=== PATIENT | female | born 1955 | race Caucasian/White ===

== ENCOUNTER 2024-04-17 08:13 | Emergency (ER) | payer MEDICARE ==
[2024-04-17] MEDS ORDERED: Sodium Chloride 0.9% 10 ML Syringe FLUSH PRN (08:49)
[2024-04-17 09:31] LABS: BASOPHILS PERCENT AUTO 0.1 % (0.0-1.0); EOSINOPHILS ABSOLUTE AUTO 0.1 K/mm3 (0.0-0.4); EOSINOPHILS PERCENT AUTO 1.6 % (0.0-6.0); HEMATOCRIT 48.4 % (37.0-47.0); HEMOGLOBIN 16.2 gm/dl (12.0-16.0); IMMATURE GRAN ABSOLUTE AUTO 0.02 K/mm3 (0.00-0.05); IMMATURE GRAN PERCENT AUTO 0.3 % (0.0-0.4); LYMPHOCYTES ABSOLUTE AUTO 1.4 K/mm3 (1.0-4.8); LYMPHOCYTES PERCENT AUTO 20.1 % (24.0-44.0); MEAN CORPUSCULAR HEMOGLOBIN 28.1 pg (28.0-32.0); MEAN CORPUSCULAR HGB CONC 33.5 g/dl (32.0-36.0); MEAN CORPUSCULAR VOLUME 83.9 fl (83.0-99.0); MEAN PLATELET VOLUME 9.8 fl (9.4-12.3); MONOCYTES ABSOLUTE AUTO 0.4 K/mm3 (0.0-0.8); MONOCYTES PERCENT AUTO 5.3 % (0.0-8.0); NEUTROPHILS ABSOLUTE AUTO 4.9 K/mm3 (1.8-7.7); NEUTROPHILS PERCENT AUTO 72.6 % (41.0-71.0); PLATELET COUNT,PLT 251 K/mm3 (150-400); RED BLOOD CELL COUNT 5.77 M/mm3 (4.10-5.30); WHITE BLOOD CELL COUNT,WBC 6.77 K/mm3 (3.9-11.3)
[2024-04-17 09:53] LABS: A/G RATIO 1.2 (1-2); ALBUMIN 4.3 g/dl (3.4-5.0); BILIRUBIN TOTAL 0.8 mg/dL (0.2-1.0); CALCIUM 9.4 mg/dL (8.5-10.1); EST CRCL DRUG DOSING (CG) 53.09 mL/min
[2024-04-17 10:40] LABS: APPEARANCE,URINE CLEAR (Clear); BILIRUBIN,URINE NEGATIVE (Negative); COLOR,URINE LIGHT YELLOW (Yellow); GLUCOSE,URINE NEGATIVE (Negative); KETONES,URINE NEGATIVE (Negative); LEUKOCYTE ESTERASE,URINE TRACE (Negative); NITRITE,URINE NEGATIVE (Negative); OCCULT BLOOD,URINE NEGATIVE (Negative); PH,URINE 6.5 (5.0-8.0); PROTEIN,URINE NEGATIVE (Negative); UROBILINOGEN,URINE 0.2 (0.2-1.0)
[2024-04-17 11:15] LABS: BACTERIA,URINE FEW /hpf (FEW); EPITHELIAL CELLS,URINE 0-5 /hpf (0-5); RBC,URINE 0-5 /hpf (0-5)
[2024-04-17 11:16] LABS: MUCUS,URINE FEW /hpf (FEW)
== END 2024-04-17 12:25 | disposition home or self-care (01) ==
LOC: JD.ED 08:13
DX: G93.9 Disorder of brain, unspecified (principal); R82.90 Unspecified abnormal findings in urine; Z79.890 Hormone replacement therapy
CPT/HCPCS: 36415; 70450; 70450-26; 80053; 81001; 85025; 87086; 93005; 93010; 99285

== ENCOUNTER 2024-06-07 13:29 | Emergency (ER) | payer MEDICARE ==
[2024-06-07] MEDS ORDERED: Sodium Chloride 0.9% 10 ML Syringe FLUSH PRN (14:04)
[2024-06-07] MEDS ORDERED: Naloxone 0.4 MG/ML SDV IVPUSH PRN (15:00)
[2024-06-07 15:04] LABS: BASOPHILS PERCENT AUTO 0.1 % (0.0-1.0); EOSINOPHILS ABSOLUTE AUTO 0.2 K/mm3 (0.0-0.4); EOSINOPHILS PERCENT AUTO 1.7 % (0.0-6.0); HEMATOCRIT 40.6 % (37.0-47.0); HEMOGLOBIN 13.7 gm/dl (12.0-16.0); IMMATURE GRAN ABSOLUTE AUTO 0.02 K/mm3 (0.00-0.05); IMMATURE GRAN PERCENT AUTO 0.2 % (0.0-0.4); LYMPHOCYTES ABSOLUTE AUTO 1.3 K/mm3 (1.0-4.8); MEAN CORPUSCULAR HEMOGLOBIN 28.9 pg (28.0-32.0); MEAN CORPUSCULAR HGB CONC 33.7 g/dl (32.0-36.0); MEAN CORPUSCULAR VOLUME 85.7 fl (83.0-99.0); MONOCYTES ABSOLUTE AUTO 0.6 K/mm3 (0.0-0.8); MONOCYTES PERCENT AUTO 7.1 % (0.0-8.0); NEUTROPHILS ABSOLUTE AUTO 6.6 K/mm3 (1.8-7.7); NEUTROPHILS PERCENT AUTO 75.9 % (41.0-71.0); PLATELET COUNT,PLT 252 K/mm3 (150-400); RED BLOOD CELL COUNT 4.74 M/mm3 (4.10-5.30); WHITE BLOOD CELL COUNT,WBC 8.68 K/mm3 (3.9-11.3)
[2024-06-07] MEDS: Metoclopramide 10 MG/2 ML SDV IVPUSH ONE (15:11)
[2024-06-07] MEDS: diphenhydrAMINE 50 MG/ML SDV IVPUSH ONE (15:11)
[2024-06-07] MEDS: HYDROmorphone 0.5 MG/0.5 ML Syringe IVPUSH ONE (15:15)
[2024-06-07 15:25] LABS: A/G RATIO 1.2 (1-2); ALBUMIN 3.9 g/dl (3.4-5.0); ANION GAP 13.8 (5-15); BILIRUBIN TOTAL 0.7 mg/dL (0.2-1.0); CALCIUM 9.1 mg/dL (8.5-10.1); CREATININE 0.9 mg/dL (0.55-1.02); EST CRCL DRUG DOSING (CG) 58.99 mL/min; POTASSIUM,K 3.8 mEq/L (3.5-5.1); PROTEIN TOTAL,TP 7.3 g/dl (6.4-8.2)
[2024-06-07] MEDS: Dexamethasone 10 MG/ML SDV IVPUSH ONE (17:21)
== END 2024-06-07 17:55 | disposition home or self-care (01) ==
LOC: JD.ED 13:29
DX: R51.9 Headache, unspecified (principal); E03.9 Hypothyroidism, unspecified
CPT/HCPCS: 36415; 70450; 72125; 80053; 85025; 96374; 96375; 99284; J1100; J1171; J1200; J2765

== ENCOUNTER 2024-07-04 15:17 | Inpatient (IN) | payer MEDICARE ==
[2024-07-04] MEDS ORDERED: Sodium Chloride 0.9% 10 ML Syringe FLUSH PRN (15:49)
[2024-07-04] MEDS: Ketorolac 30 MG/ML SDV IVPUSH ONE (16:02)
[2024-07-04] MEDS: Metoclopramide 10 MG/2 ML SDV IVPUSH ONE (16:03)
[2024-07-04] MEDS: Ketamine 200 MG/20 ML MDV IVPUSH ONE (16:08)
[2024-07-04] MEDS ORDERED: Polyethylene Glycol 3350 Powder 17 GM Packet PO PRN (17:10)
[2024-07-04] MEDS: diphenhydrAMINE 50 MG/ML SDV IVPUSH ONE (17:17)
[2024-07-04] MEDS: Ketamine 500 MG in Sodium Chloride 0.9% 490 ML IV SCH (18:35)
[2024-07-05] MEDS ORDERED: Acetaminophen 325 MG Tab PO PRN ×2 (07:21→18:53)
[2024-07-05] MEDS: oxyCODONE 5 MG Tab PO PRN (09:29)
[2024-07-05] MEDS ORDERED: Naloxone 0.4 MG/ML SDV IVPUSH PRN (09:42)
[2024-07-05] MEDS: Morphine 10 MG/0.5 ML Oral Syringe PO PRN ×2 (14:08→22:06)
[2024-07-05] MEDS: Dexamethasone 4 MG Tab PO ONE (15:41)
[2024-07-05] MEDS: Melatonin 3 MG Tab PO PRN (22:06)
[2024-07-06] MEDS: HYDROmorphone 1 MG/ML Syringe IVPUSH ONE (05:30)
[2024-07-06] MEDS: Dexamethasone 4 MG Tab PO SCH (08:10)
[2024-07-06] MEDS: Morphine 10 MG/0.5 ML Oral Syringe PO PRN (08:11)
[2024-07-06] MEDS: Ondansetron 4 MG/2 ML SDV IV PRN (11:30)
[2024-07-06] MEDS: Metoclopramide 10 MG/2 ML SDV IVPUSH ONE (18:12)
[2024-07-06] MEDS: Metoclopramide 10 MG Tab PO PRN (20:35)
[2024-07-07] MEDS: Metoclopramide 10 MG/2 ML SDV IVPUSH PRN (00:25)
[2024-07-07] MEDS ORDERED: Dexamethasone 10 MG/ML SDV IVPUSH SCH (09:00)
[2024-07-07] MEDS: Dexamethasone 10 MG/ML SDV IVPUSH ONE (09:50)
[2024-07-07] MEDS: Dexamethasone 4 MG/ML SDV IV SCH (15:20)
[2024-07-08] MEDS: Metoclopramide 10 MG Tab PO PRN (08:55)
[2024-07-08] MEDS: Dexamethasone 4 MG Tab PO SCH (08:55)
[2024-07-08] MEDS: HYDROmorphone 0.5 MG/0.5 ML Syringe IVPUSH PRN (13:11)
== END 2024-07-08 11:30 | disposition home or self-care (01) | DRG 55 ==
LOC: JD.ED 15:17 → JD.ICU 17:10 → OBSVTOIN 07-06 16:16
PROVIDERS: ADMIT Family Medicine; ATTEND Family Medicine
DX: C71.9 Malignant neoplasm of brain, unspecified (principal); E03.9 Hypothyroidism, unspecified; Z79.890 Hormone replacement therapy; F41.9 Anxiety disorder, unspecified; H54.7 Unspecified visual loss; M79.604 Pain in right leg; G89.29 Other chronic pain; Z66 Do not resuscitate; Z51.5 Encounter for palliative care; Z79.899 Other long term (current) drug therapy; Z87.442 Personal history of urinary calculi; Z90.89 Acquired absence of other organs; Z98.890 Other specified postprocedural states
CPT/HCPCS: 94761; 94762; 96374; 96375; 97110; 97161; 97530; 99284; A9270 ×7; J1171; J1200; J1885; J2405; J2765; J3490; J7040; J8540 ×2; 51702; 96376; G0378; J1100